=== PATIENT | female | born 1970 | race Two or more races ===

== ENCOUNTER 2019-01-15 12:58 | Inpatient (IN) | payer MEDICAID ==
[~2019-01-15] VITALS: Ht 170.2 cm; Wt 74.8 kg
[2019-01-15 13:11] VITALS: BP 127/72
[2019-01-15] MEDS ORDERED: Isovue-300 100ml vial INJ PRN (13:15)
[2019-01-15] MEDS ORDERED: NKM (13:16)
--- NOTE | 2019-01-15 13:18 | Emergency Room Report ---
History of Present Illness General Chief Complaint: Nausea, Vomiting, and Diarrhea Source: Patient, Medical Record (Con Villanueva DO) Present Illness HPI Patient presents with complaints of general weakness increased nausea vomiting diarrhea ongoing for the past several days patient reports that today she started feeling very weak She reports specifically weakness to her left arm as well reports that it feels heavy when trying to lift it This started in the morning about 7:00 Denies any lower extremity focal weakness patient reports history of anemia denies any previous transfusions Patient also felt palpitations with this lightheaded at times with standing Patient reports that her anemia is reported to be related to her heavy menstrual cycles Denies any fall or trauma patient also complains of bilateral mid abdominal cramping (Con Villanueva DO) Allergies: Coded Allergies: No Known Allergies (Unverified , 01/15/19) Patient History Past Medical History: see triage record Pertinent Family History: none Last Menstrual Period: 01/07/19 Reviewed Nursing Documentation: PMH: Agreed; PSxH: Agreed (Con Villanueva DO) Nursing Documentation-PMH Past Medical History: No History, Except For (Con Villanueva DO) Review of Systems All Other Systems: negative except mentioned in HPI (Con Villanueva DO) Physical Exam Vital Signs Date Time Temp Pulse Resp B/P (MAP) Pulse Ox O2 Delivery O2 Flow Rate FiO2 01/15/19 13:08 97.7 95 18 136/87 (103) 96 Room Air Sp02 EP Interpretation: reviewed, normal General Appearance: mild distress - Appears uncomfortable Head: normocephalic, atraumatic Eyes: bilateral eye PERRL, bilateral eye EOMI ENT: hearing grossly normal, TMs + canals normal, uvula midline, dry mucus membranes, other - pallor Neck: full range of motion, supple, no meningismus, no bony tend Respiratory: lungs clear, normal breath sounds, no rhonchi, no respiratory distress, no retraction, no accessory muscle use Cardiovascular #1: normal peripheral pulses, regular rate, rhythm, no edema, no gallop, no JVD, no murmur Gastrointestinal: normal bowel sounds, non tender, soft, no mass, no organomegaly, non-distended, no guarding, no hernia, no pulsatile mass, no rebound Genitourinary: no CVA tenderness Musculoskeletal: other - Equal nurseryperson bilaterally no obvious drift patient reports, subjectively feeling weaker in the left hand Neurologic: oriented x3, responsive, motor strength/tone normal, sensory intact Psychiatric: mood/affect normal Skin: warm/dry, palpation normal, pallor Lymphatic: normal inspection, no adenopathy (Con Villanueva DO) Medical Decision Making Diagnostic Impression: Primary Impression: Sepsis Qualified Codes: A41.9 - Sepsis, unspecified organism Additional Impressions: Abdominal pain Qualified Codes: R10.10 - Upper abdominal pain, unspecified Leukocytosis Qualified Codes: D72.828 - Other elevated white blood cell count Elevated lactic acid level UTI (urinary tract infection) Qualified Codes: N39.0 - Urinary tract infection, site not specified ER Course Multiple differentials and consideration upon arrival patient appears pale There is concern regarding significant anemia Given the patient's weakness CT imaging is also obtained however patient does not meet any Thrombolytic criteria falling well outside the window of 4 to 6-1/2 hours from onset Patient also does not demonstrate any focal weakness on the exam Given the vomiting and diarrhea other infectious pathology also entertained (Con Villanueva DO) ER Course Please see above note. Antibiotics begun. Elevated lactic acid. Sepsis fluid bolus ordered with continued hydration. Small dose morphine given for abdominal pain. Still soft. Head CT neg. No more L arm weakness. States index finger numb from pulse ox. CT returns essentially negative (bladder thick). Renal cyst. Pain is not in lower abdomen. Contact Dr. Pham/Ananda for admission with Dr. Ordoñez consult. Sepsis re-evaluation, - 15:50 - HR better, lactic acid less, good cap fill, antibiotics in. Source of sepsis unclear. Laboratory Tests Test 01/15/19 13:20 01/15/19 14:05 01/15/19 15:15 White Blood Count 24.2 K/UL (4.8-10.8) *H Red Blood Count 5.34 M/UL (4.20-5.40) Hemoglobin 9.3 G/DL (12.0-16.0) L Hematocrit 32.3 % (37.0-47.0) L Mean Corpuscular Volume 61 FL (80-99) L Mean Corpuscular Hemoglobin 17.5 PG (27.0-31.0) L Mean Corpuscular Hemoglobin Concent 28.9 G/DL (32.0-36.0) L Red Cell Distribution Width 15.7 % (11.6-14.8) H Platelet Count 599 K/UL (150-450) H Mean Platelet Volume 5.8 FL (6.5-10.1) L Neutrophils (%) (Auto) % (45.0-75.0) Lymphocytes (%) (Auto) % (20.0-45.0) Monocytes (%) (Auto) % (1.0-10.0) Eosinophils (%) (Auto) % (0.0-3.0) Basophils (%) (Auto) % (0.0-2.0) Differential Total Cells Counted 100 Neutrophils % (Manual) 85 % (45-75) H Lymphocytes % (Manual) 9 % (20-45) L Monocytes % (Manual) 5 % (1-10) Eosinophils % (Manual) 0 % (0-3) Basophils % (Manual) 0 % (0-2) Band Neutrophils 1 % (0-8) Platelet Estimate Increased H Platelet Morphology Normal Hypochromasia 2+ Anisocytosis 1+ Microcytosis 4+ Sodium Level 132 MMOL/L (136-145) L Potassium Level 3.5 MMOL/L (3.5-5.1) Chloride Level 101 MMOL/L (98-107) Carbon Dioxide Level 21 MMOL/L (21-32) Anion Gap 10 mmol/L (5-15) Blood Urea Nitrogen 8 mg/dL (7-18) Creatinine 0.8 MG/DL (0.55-1.30) Estimate Glomerular Filtration Rate > 60 mL/min (>60) Glucose Level 199 MG/DL (74-106) H Lactic Acid Level 3.00 mmol/L (0.4-2.0) H 2.30 mmol/L (0.66-2.22) H Calcium Level 9.6 MG/DL (8.5-10.1) Total Bilirubin 0.4 MG/DL (0.2-1.0) Aspartate Amino Transferase (AST) 37 U/L (15-37) Alanine Aminotransferase (ALT) 33 U/L (12-78) Alkaline Phosphatase 118 U/L (46-116) H Total Creatine Kinase 229 U/L (26-308) Creatine Kinase MB 0.8 NG/ML (0.0-3.6) Creatine Kinase MB Relative Index 0.3 Troponin I 0.000 ng/mL (0.000-0.056) Pro-B-Type Natriuretic Peptide 21 pg/mL (0-125) Total Protein 8.4 G/DL (6.4-8.2) H Albumin 3.9 G/DL (3.4-5.0) Globulin 4.5 g/dL Albumin/Globulin Ratio 0.9 (1.0-2.7) L Lipase 129 U/L (73-393) Urine Color Yellow Urine Appearance Turbid Urine pH 5 (4.5-8.0) Urine Specific [place] 1.030 (1.005-1.035) Urine Protein 3+ (NEGATIVE) H Urine Glucose (UA) Negative (NEGATIVE) Urine Ketones 2+ (NEGATIVE) H Urine Blood 4+ (NEGATIVE) H Urine Nitrite Negative (NEGATIVE) Urine Bilirubin 1+ (NEGATIVE) H Urine Ictotest Negative (NEGATIVE) Urine Urobilinogen Normal MG/DL (0.0-1.0) Urine Leukocyte Esterase 1+ (NEGATIVE) H Urine RBC 10-15 /HPF (0 - 2) H Urine WBC 5-10 /HPF (0 - 2) H Urine Squamous Epithelial Cells Few /LPF (NONE/OCC) Urine Calcium Oxalate Crystals Few /LPF (NONE) Urine Amorphous Sediment Many /LPF (NONE) H Urine Bacteria Few /HPF (NONE) Urine HCG, Qualitative Negative (NEGATIVE) (Marshall Gutierres MD) Rhythm Strip Diag. Results EP Interpretation: yes Rate: 88 Rhythm: NSR, no PVC's, no ectopy (Con Villanueva DO) EP Interpretation: yes Rhythm: no PVC's, no ectopy, other - ST (Marshall Gutierres MD) Chest X-Ray Diagnostic Results Chest X-Ray Diagnostic Results : Chest X-Ray Ordered: Yes # of Views/Limited/Complete: 1 View Indication: Other EP Interpretation: Yes Interpretation: no consolidation, no effusion, no pneumothorax Impression: No acute disease Electronically Signed by: Electronically signed by Marshall Gutierres MD (Marshall Gutierres MD) CT/MRI/US Diagnostic Results CT/MRI/US Diagnostic Results #1: Imaging Test Ordered: abd/pelvis Impression IMPRESSION: Fatty liver Mild thickening of the wall the urinary bladder. Correlate for cystitis. Suggestion of uterine fibroids. Small cyst in the left kidney. 1.8 cm cyst left ovary. Mild atherosclerotic vascular disease. CT/MRI/US Diagnostic Results #2: Imaging Test Ordered: head Impression neg (Marshall Gutierres MD) Last Vital Signs Date Time Temp Pulse Resp B/P (MAP) Pulse Ox O2 Delivery O2 Flow Rate FiO2 01/15/19 13:11 97.7 94 20 127/72 99 Room Air (Con Villanueva DO) Last Vital Signs Date Time Temp Pulse Resp B/P (MAP) Pulse Ox O2 Delivery O2 Flow Rate FiO2 01/15/19 16:50 98.4 104 20 96/66 (76) 98 01/15/19 16:50 Room Air Status: improved (Marshall Gutierres MD) Disposition: ADMITTED INPATIENT Condition: Serious Con Villanueva DO Jan 15, 2019 13:18 Marshall Gutierres MD Jan 15, 2019 14:23
[2019-01-15 13:42] LABS: HEMATOCRIT 32.3 % (37.0-47.0); HEMOGLOBIN 9.3 G/DL (12.0-16.0); MEAN CORPUSCULAR VOLUME 61 FL (80-99); PLATELET COUNT 599 K/UL (150-450); RED BLOOD COUNT 5.34 M/UL (4.20-5.40); RED CELL DISTRIBUTION WIDTH 15.7 % (11.6-14.8)
--- NOTE | 2019-01-15 13:45 | NUR ---
ED Nurse Note: Pt came in from home due to upper quadrant abdominal pain with nausea/vomiting/diarrhea x " a couple of hours" prior to arrival. Pain 10/10 audra. No active vomiting in ER but reported emesis was "yelowish fluid". Last bowel movement was today. Bowel sounds present on all quadrants. AOx4, VSS audra. Will cont to monitor.
[2019-01-15 13:46] LABS: WHITE BLOOD COUNT 24.2 K/UL (4.8-10.8)
[2019-01-15 13:55] LABS: ANION GAP 10 mmol/L (5-15); BLOOD UREA NITROGEN 8 mg/dL (7-18); CALCIUM 9.6 MG/DL (8.5-10.1); CARBON DIOXIDE 21 MMOL/L (21-32); CHLORIDE 101 MMOL/L (98-107); CREATININE 0.8 MG/DL (0.55-1.30); POTASSIUM 3.5 MMOL/L (3.5-5.1); SODIUM 132 MMOL/L (136-145)
[2019-01-15 14:09] LABS: ALANINE AMINOTRANSFERASE 33 U/L (12-78); ALBUMIN 3.9 G/DL (3.4-5.0); ALBUMIN/GLOBULIN RATIO 0.9 (1.0-2.7); ALKALINE PHOSPHATASE 118 U/L (46-116); ASPARTATE AMINO TRANSFERASE 37 U/L (15-37); BILIRUBIN,TOTAL 0.4 MG/DL (0.2-1.0); CKMB 0.8 NG/ML (0.0-3.6); CREATINE KINASE 229 U/L (26-308)
--- NOTE | 2019-01-15 14:09 | Diagnostic Imaging Report ---
Indication: Dizziness and vomiting Technique: Contiguous 5 mm thick transaxial imaging of the head obtained in a Siemens Sensation [address] scanner. Soft tissue and bone windows generated. Automatic Exposure Control was utilized. Total Dose length Product (DLP): 1291.[address] Dose Index Volume (CTDIvol): 70.38 mGy Comparison: none Findings: The size and configuration of the cortical sulci, basal cisterns, and ventricles are within normal limits for age. There is no mass effect, midline shift, or edema identified. There is no evidence of acute hemorrhage or abnormal intra-axial or extra-axial fluid collections. The bones and soft tissues are unremarkable. Impression: No mass effect, edema or acute bleed. The CT scanner at [facility] is accredited by the [employer] and the scans are performed using dose optimization techniques as appropriate to a performed exam including Automatic Exposure control.
--- NOTE | 2019-01-15 14:15 | NUR ---
ED Nurse Note: Pt ambulated to the bathroom with steady gait.
--- NOTE | 2019-01-15 14:20 | Diagnostic Imaging Report ---
Indication: Chest pain Comparison: None A single view chest radiograph was obtained. Findings: Cardiomediastinal appearance is within normal limits for age. The lungs are clear. Pulmonary vascularity is appropriate. The diaphragmatic contour is smooth and costophrenic angles are sharp. No pleural effusions are identified. The bones are unremarkable. Impression: No acute findings
[2019-01-15] MEDS ORDERED: Sodium Chloride 2,200 ML IVLG ONE (14:30)
[2019-01-15 14:31] LABS: APPEARANCE,URINE TURBID; BILIRUBIN, URINE 1+ (NEGATIVE); GLUCOSE, URINE (UA) NEGATIVE (NEGATIVE); KETONES,URINE 2+ (NEGATIVE); LEUKOCYTE ESTERASE ,URINE 1+ (NEGATIVE); NITRITE,URINE NEGATIVE (NEGATIVE); PH,URINE 5 (4.5-8.0); PROTEIN,URINE 3+ (NEGATIVE); UROBILINOGEN,URINE NORMAL MG/DL (0.0-1.0)
[2019-01-15 14:36] LABS: COLOR,URINE YELLOW
[2019-01-15] MEDS ORDERED: Morphine Sulfate 2mg/ml Inj(IV/IM USE ONLY) IVP ONE (14:45)
--- NOTE | 2019-01-15 14:47 | NUR ---
ED Nurse Note: Pt down to CT for abdominal imaging. Consent signed by patient and RN.
--- NOTE | 2019-01-15 15:10 | NUR ---
ED Nurse Note: Pt back from CT, no sign of acute distress.
--- NOTE | 2019-01-15 15:36 | Diagnostic Imaging Report ---
Indication: Abdominal pain Technique: Continuous helical transaxial imaging of the abdomen and pelvis was obtained from the lung bases to the pubic symphysis during intravenous contrast administration. Coronal 2-D reformats were also obtained. Study obtained in a Siemens sensation [address] Automatic Exposure Control was utilized. Total Dose length Product (DLP): 862.[address] Dose Index Volume (CTDIvol): 16.14 mGy Comparison: None Findings: Lung bases are clear. The liver is low in attenuation consistent with fatty infiltration. Gallbladder is unremarkable. There is breathing motion limiting evaluation. The spleen, pancreas, adrenal glands and kidneys appear normal. There is a cyst in the left kidney measuring 1.7 cm. Bowel gas pattern is nonobstructive. There is liquefied stool in the colon which is a sign of diarrhea. Correlate clinically. Mild thickening of the urinary bladder wall noted. Appendix is not seen but there are no secondary signs of acute appendicitis. The uterus is heterogeneous. There is a 3.7 cm mass in the lower uterine segment likely a fibroid. There is a 1.8 cm cyst within the left ovary. There is no free fluid identified. IMPRESSION: Fatty liver Mild thickening of the wall the urinary bladder. Correlate for cystitis. Suggestion of uterine fibroids. Small cyst in the left kidney. 1.8 cm cyst left ovary. Mild atherosclerotic vascular disease. The CT scanner at [facility] is accredited by the [employer] and the scans are performed using dose optimization techniques as appropriate to a performed exam including Automatic Exposure control.
[2019-01-15 15:44] VITALS: BP 111/63
[2019-01-15 16:15] VITALS: BP 108/58
--- NOTE | 2019-01-15 16:35 | NUR ---
ED Nurse Note: Report given to DARNELL Villalobos at ext [phone]. Pt to be transfered to [facility] per protocol.
[2019-01-15 16:50] VITALS: BP 96/66
--- NOTE | 2019-01-15 16:50 | NUR ---
NURSE NOTES: ADMITTED A 48 YR OLD FEMALE WITH DX OF WEAKNESS AND DEHYDRATION. AWAKE /ALERT. ADM CARE DONE SEE ADM ASSESSMENT. DR Miguel DICKSON NOTIFIED OF PT ADMISSION WITH ORDER.
--- NOTE | 2019-01-15 19:00 | NUR ---
NURSE NOTES: quiet in bed. no c/o discomfort. in no distress.
--- NOTE | 2019-01-15 19:23 | NUR ---
HAND-OFF: Report given to RADHA PATRICK.
--- NOTE | 2019-01-15 19:44 | NUR ---
NURSE NOTES: Received report from DARNELL Dillon. Patient is awake in bed, speaking on her cell phone. Alert x 4. No respiratory distress. Bed in lowest position with 2 side rails up. Call light is within reach. Will continue to monitor the patient.
[2019-01-15 20:00] VITALS: BP 105/67
--- NOTE | 2019-01-15 20:17 | NUR ---
CASE MANAGEMENT: REVIEW 48Y/F PRESENTED TO ED FROM HOME CC: N/V/D . GENERALIZED WEAKNESS . ABD PAIN . DIZZINESS SI: DEHYDRATION . SEPSIS . UTI T 98.4 HR 104 RR 20 BP 96/66 SAT 96% ROOM AIR WBC 24.2 H/H 9.3/32.3 LACTIC ACID 3.0 IS: NS IVF BOLUS X1 FLAGYL IV X1 LEVOFLOXACIN IV X1 ZOFRAN IV X1 MORPHINE 2MG IV X1 PATIENT ADMITTED TO MED/SURG UNIT 01/15/2019 DCP: PATIENT IS FROM HOME
--- NOTE | 2019-01-15 20:22 | NUR ---
NURSE NOTES: Called Dr Malave at 2019 regarding patient's DVT prophylaxis and code status. Also informed regarding EKG results and requested any additional orders if necessary. Waiting for callback.
[2019-01-15] MEDS: D5NS 1,000 ML IV SCH (23:06)
[2019-01-15] MEDS: Piperacillin/Tazobactam 3.375 GM in NS 110 ML IVPB SCH (23:07)
[2019-01-16] VITALS: BP 102/73
[2019-01-16 04:00] VITALS: BP 106/60
[2019-01-16] MEDS: Piperacillin/Tazobactam 3.375 GM in NS 110 ML IVPB SCH (05:41)
--- NOTE | 2019-01-16 06:15 | History and Physical Report ---
DATE OF ADMISSION: 01/15/2019 REASON FOR ADMISSION: Leukocytosis, lactic acidosis, and probable sepsis history. HISTORY OF PRESENT ILLNESS: This is a 48-year-old female with no significant prior medical history developed relatively acute onset nausea, vomiting, and diarrhea this morning after breakfast. She had mild symptoms the past few days, but not of this intensity and of L3 combined. She noted dizziness, lightheadedness, and weakness of her left arm following these events and felt her blood pressure was quite low. She could not stand up without feeling dizzy and lightheaded. PAST MEDICAL HISTORY: Includes anemia due to menorrhagia. MEDICATIONS: Reviewed and reconciled. ALLERGIES: None. FAMILY HISTORY: Noncontributory. SOCIAL HISTORY: Negative for smoking, alcohol, or substance abuse. REVIEW OF SYSTEMS: A 10-point review of systems performed. All systems negative other than noted above. PHYSICAL EXAMINATION: GENERAL: She is presently in no acute distress. VITAL SIGNS: Blood pressure 136/87, pulse 95, respirations 18, and afebrile. HEENT: Conjunctivae are pink. Sclerae are anicteric. Oropharynx clear. Mucous membranes dry. NECK: Supple. Jugular venous pressure normal. LUNGS: Clear. No breast masses. CARDIAC: Regular rhythm and rate. Normal S1, S2 with no murmur. ABDOMEN: Soft. She has no distention. There is mild diffuse tenderness. No guarding or rebound. EXTREMITIES: No clubbing, cyanosis, or edema. LABORATORY DATA: White count 24, hemoglobin 9.3, and platelets 599,000. Potassium 3.5, sodium 132, and bicarb 21. Lactic acid 3. BUN 8 and creatinine 0.8. Troponin negative. Liver function normal. Lipase normal. IMPRESSION: 1. Nausea, vomiting, and diarrhea. 2. Abdominal sepsis with leukocytosis. 3. Hyponatremia. 4. Hypovolemia. 5. Orthostatic hypotension. 6. Lactic acidosis. PLAN: 1. Hydration with saline. 2. Pancultured. 3. Empiric antibiotics. 4. Replace electrolytes. 5. Thyroid panel. 6. Stool studies. 7. Review CAT scan of the abdomen and pelvis done in the emergency room. Marshall Malave M.D. DR: PAM JOB#: [id number] CC:
--- NOTE | 2019-01-16 07:16 | NUR ---
HAND-OFF: Report given to DARNELL Rodriguez.
[2019-01-16 07:59] VITALS: BP 106/60
--- NOTE | 2019-01-16 08:00 | NUR ---
NURSE NOTES: Pt awake alert, no sob. no c/o pain. no distress. call light within reach. bed in lowest position, locked. will monitor.
--- NOTE | 2019-01-16 08:00 | NUR ---
NURSE NOTES: pt awake alert, no distress. no sob. c/o diarrhea no c/o pain. made aware dr Pham, received order for lomotil tid prn
[2019-01-16] MEDS: Lomotil 2.5mg tab ORAL PRN (08:26)
[2019-01-16] MEDS: D5NS 1,000 ML IV SCH (08:30)
[2019-01-16 08:37] LABS: HEMATOCRIT 24.6 % (37.0-47.0); HEMOGLOBIN 7.3 G/DL (12.0-16.0); MEAN CORPUSCULAR VOLUME 60 FL (80-99); PLATELET COUNT 427 K/UL (150-450); RED BLOOD COUNT 4.07 M/UL (4.20-5.40); RED CELL DISTRIBUTION WIDTH 15.5 % (11.6-14.8); WHITE BLOOD COUNT 14.3 K/UL (4.8-10.8)
[2019-01-16] MEDS ORDERED: Heparin 5000 units/ml inj SUBQ SCH ×2 (09:00)
[2019-01-16 09:25] LABS: ALANINE AMINOTRANSFERASE 24 U/L (12-78); ALBUMIN 3.2 G/DL (3.4-5.0); ALKALINE PHOSPHATASE 87 U/L (46-116); ANION GAP 10 mmol/L (5-15); ASPARTATE AMINO TRANSFERASE 11 U/L (15-37); BILIRUBIN,TOTAL 0.4 MG/DL (0.2-1.0); BLOOD UREA NITROGEN 7 mg/dL (7-18); CALCIUM 8.3 MG/DL (8.5-10.1); CARBON DIOXIDE 23 MMOL/L (21-32); CHLORIDE 107 MMOL/L (98-107); CREATININE 0.7 MG/DL (0.55-1.30); POTASSIUM 3.4 MMOL/L (3.5-5.1); SODIUM 140 MMOL/L (136-145)
[2019-01-16 12:00] VITALS: BP 106/64
[2019-01-16 12:03] LABS: % IRON SATURATION 3 % (15-50); IRON 13 ug/dL (50-175); TOTAL IRON BINDING CAPACITY 417 ug/dL (250-450)
[2019-01-16] MEDS: metroNIDAZOLE 500mg tab ORAL SCH ×2 (13:24→21:56)
[2019-01-16] MEDS: Levofloxacin 500mg tab ORAL SCH (13:24)
--- NOTE | 2019-01-16 14:00 | NUR ---
NURSE NOTES: relayed to dr Pham re hgb trend today no new order. pending collection for stool ob
--- NOTE | 2019-01-16 14:55 | Consultation ---
History of Present Illness General Date patient seen: Jan 16, 2019 Reason for Hospitalization: Nausea, Vomiting, and Diarrhea Present Illness HPI 48-year-old female with no significant prior medical history developed relatively acute onset nausea, vomiting, and diarrhea after breakfast on day of admission. Minimal abdominal discomfort. denies f/c. no blood noted in stool. no recent travel. no prior events. in ED had leukocytosis. UTI. surgery called to evaluate. CT a/p okay. Allergies: Coded Allergies: No Known Allergies (Unverified , 01/15/19) Medication History Scheduled No Known Medications* (NKM - No Known Medications*), 0 ., (Reported) Patient History History Provided By: Patient, Medical Record, PMD Healthcare decision maker SELF Resuscitation status Full Code Advanced Directive on File No Past Medical/Surgical History Past Medical/Surgical History: (1) Dehydration (2) Weakness (3) Left-sided weakness (4) Sepsis (5) Leukocytosis (6) Elevated lactic acid level (7) UTI (urinary tract infection) (8) Abdominal pain Review of Systems Review of Symptoms General ROS: no weight loss or fever Psychological ROS: no depression or mood changes, no memory loss Ophthalmic ROS: no visual changes or eye irritation ENT ROS: no nasal congestion, hearing loss, dizziness Allergy and Immunology ROS: no allergic symptoms or urticaria Hematological and Lymphatic ROS: no swollen glands, unusual bleeding or bruising Endocrine ROS: no polyuria, polydipsia, weight changes, temperature intolerance Respiratory ROS: no cough, shortness of breath, or wheezing Cardiovascular ROS: no chest pain or dyspnea on exertion Gastrointestinal ROS: denies abdominal pain, no bright red blood in stool. Musculoskeletal ROS: no myalgias or arthralgias Neurological ROS: no TIA or stroke symptoms Dermatological ROS: no new or changing skin lesions, rashes or pruritis Physical Exam Physical Exam General appearance: alert, cooperative, no distress, appears stated age Head: Normocephalic, without obvious abnormality, atraumatic Eyes: conjunctivae/corneas clear. PERRL, EOM's intact. Fundi benign Throat: Lips, mucosa, and tongue normal. Teeth and gums normal Neck: supple, symmetrical, trachea midline, no adenopathy, thyroid: not enlarged, symmetric, no tenderness/mass/nodules, no carotid bruit and no JVD Lungs: clear to auscultation bilaterally Heart: regular rate and rhythm, S1, S2 normal, no murmur, click, rub or gallop Abdomen: soft, non-tender. Bowel sounds normal. No masses, no organomegaly Extremities: extremities normal, atraumatic, no cyanosis or edema Pulses: 2+ and symmetric Skin: Skin color, texture, turgor normal. No rashes or lesions Neurologic: Grossly normal Last 24 Hour Vital Signs Date Time Temp Pulse Resp B/P (MAP) Pulse Ox O2 Delivery O2 Flow Rate FiO2 01/16/19 12:00 98.3 89 18 106/64 (78) 97 01/16/19 11:17 98.3 01/16/19 08:28 Room Air 01/16/19 07:59 98.3 90 18 106/60 (75) 97 01/16/19 04:00 98.3 85 18 106/60 (75) 97 01/16/19 00:00 99.5 99 18 102/73 (83) 97 01/15/19 21:00 Room Air 01/15/19 20:00 97.6 104 18 105/67 (80) 97 01/15/19 16:50 98.4 104 20 96/66 (76) 98 01/15/19 16:50 Room Air 01/15/19 16:35 97.7 95 19 108/58 99 Room Air 01/15/19 16:15 97.7 95 19 108/58 99 Room Air 01/15/19 15:47 97.7 01/15/19 15:44 97.7 102 19 111/63 96 Room Air Intake and Output 01/15/19 01/16/19 19:00 07:00 Intake Total 2950 ml 110.0 ml Balance 2950 ml 110.0 ml Intake Oral 250 ml IV Total 2700 ml 110.0 ml # Voids 1 3 # Bowel Movements 1 1 Laboratory Tests Test 01/15/19 15:15 01/16/19 07:07 01/16/19 10:20 01/16/19 12:00 Lactic Acid Level 2.30 mmol/L (0.66-2.22) H 2.60 mmol/L (0.4-2.0) H 2.90 mmol/L (0.66-2.22) H 2.60 mmol/L (0.4-2.0) H White Blood Count 14.3 K/UL (4.8-10.8) H Red Blood Count 4.07 M/UL (4.20-5.40) L Hemoglobin 7.3 G/DL (12.0-16.0) L Hematocrit 24.6 % (37.0-47.0) L Mean Corpuscular Volume 60 FL (80-99) L Mean Corpuscular Hemoglobin 17.9 PG (27.0-31.0) L Mean Corpuscular Hemoglobin Concent 29.7 G/DL (32.0-36.0) L Red Cell Distribution Width 15.5 % (11.6-14.8) H Platelet Count 427 K/UL (150-450) Mean Platelet Volume 5.8 FL (6.5-10.1) L Neutrophils (%) (Auto) % (45.0-75.0) Lymphocytes (%) (Auto) % (20.0-45.0) Monocytes (%) (Auto) % (1.0-10.0) Eosinophils (%) (Auto) % (0.0-3.0) Basophils (%) (Auto) % (0.0-2.0) Differential Total Cells Counted 100 Neutrophils % (Manual) 82 % (45-75) H Lymphocytes % (Manual) 14 % (20-45) L Monocytes % (Manual) 2 % (1-10) Eosinophils % (Manual) 2 % (0-3) Basophils % (Manual) 0 % (0-2) Band Neutrophils 0 % (0-8) Platelet Estimate Adequate Platelet Morphology Normal Hypochromasia 2+ Anisocytosis 1+ Sodium Level 140 MMOL/L (136-145) Potassium Level 3.4 MMOL/L (3.5-5.1) L Chloride Level 107 MMOL/L (98-107) Carbon Dioxide Level 23 MMOL/L (21-32) Anion Gap 10 mmol/L (5-15) Blood Urea Nitrogen 7 mg/dL (7-18) Creatinine 0.7 MG/DL (0.55-1.30) Estimat Glomerular Filtration Rate > 60 mL/min (>60) Glucose Level 122 MG/DL (74-106) H Hemoglobin A1c 6.5 % (4.3-6.0) H Calcium Level 8.3 MG/DL (8.5-10.1) L Magnesium Level 1.8 MG/DL (1.8-2.4) Iron Level 13 ug/dL (50-175) L Total Iron Binding Capacity 417 ug/dL (250-450) Percent Iron Saturation 3 % (15-50) L Unsaturated Iron Binding 404 ug/dL (112-346) H Total Bilirubin 0.4 MG/DL (0.2-1.0) Aspartate Amino Transf (AST/SGOT) 11 U/L (15-37) L Alanine Aminotransferase (ALT/SGPT) 24 U/L (12-78) Alkaline Phosphatase 87 U/L (46-116) Total Protein 6.4 G/DL (6.4-8.2) Albumin 3.2 G/DL (3.4-5.0) L Globulin 3.2 g/dL Albumin/Globulin Ratio 1.0 (1.0-2.7) Thyroid Stimulating Hormone (TSH) 1.530 uiU/mL (0.358-3.740) Height (Feet): 5 Height (Inches): 7.00 Weight (Pounds): 165 Medications Current Medications Medications (Trade) Dose Ordered Sig/Niyah Route PRN Reason Start Time Stop Time Status Last Admin Dose Admin Acetaminophen (Tylenol) 650 mg Q4H PRN ORAL Mild Pain/Temp > 100.5 01/16/19 00:00 02/15/19 00:00 01/16/19 10:47 Diphenoxylate HCl/ Atropine (Lomotil) 2.5 mg TIDPRN PRN ORAL Diarrhea 01/16/19 08:00 02/15/19 07:59 01/16/19 08:26 Famotidine (Pepcid) 20 mg DAILY ORAL 01/16/19 09:00 02/15/19 08:59 01/16/19 08:26 Iopamidol (Isovue-300 100ml) 100 ml NOW PRN INJ Radiology Procedure 01/15/19 13:15 Iron Sucrose 100 mg/Sodium Chloride 60 ml @ 240 mls/hr BEDTIME IV 01/16/19 21:00 01/20/19 21:14 Levofloxacin (Levaquin) 500 mg DAILY ORAL 01/16/19 13:15 01/23/19 13:14 01/16/19 13:24 Metronidazole (Flagyl) 500 mg Q8HR ORAL 01/16/19 14:00 01/23/19 13:59 01/16/19 13:24 Ondansetron HCl (Zofran) 4 mg Q6H PRN IVP Nausea & Vomiting 01/15/19 22:30 02/14/19 22:29 Sodium Chloride 1,000 ml @ 150 mls/hr Q6H40M IV 01/16/19 12:22 02/15/19 12:21 01/16/19 12:22 Assessment/Plan Problem List: (1) Sepsis Assessment & Plan: afebrile, HD stable. leukocytosis improving UTI on IV abx trend labs cont current care ICD Codes: A41.9 - Sepsis, unspecified organism SNOMED: 90423003 Qualifiers: Qualified Codes: A41.9 - Sepsis, unspecified organism (2) Leukocytosis ICD Codes: D72.829 - Elevated white blood cell count, unspecified SNOMED: 084279756, 861904295 Qualifiers: Qualified Codes: D72.828 - Other elevated white blood cell count (3) Elevated lactic acid level ICD Codes: R79.89 - Other specified abnormal findings of blood chemistry SNOMED: 3655829 (4) UTI (urinary tract infection) ICD Codes: N39.0 - Urinary tract infection, site not specified SNOMED: 67684589, 816581044 Qualifiers: Qualified Codes: N39.0 - Urinary tract infection, site not specified (5) Abdominal pain Assessment & Plan: Abd pain, nausea, emesis. leukocytosis likely UTI possible enteritis. exam stable will follow with recs no acute surgical intervention planned. ICD Codes: R10.9 - Unspecified abdominal pain SNOMED: 82226819, 697430856 Qualifiers: Qualified Codes: R10.10 - Upper abdominal pain, unspecified (6) Dehydration ICD Codes: E86.0 - Dehydration SNOMED: 02731526 (7) Weakness ICD Codes: R53.1 - Weakness SNOMED: 82461606 (8) Left-sided weakness ICD Codes: R53.1 - Weakness SNOMED: 998475351 Silver Ordoñez Jan 16, 2019 14:55
--- NOTE | 2019-01-16 15:13 | NUR ---
*-* INSURANCE *-* ALL CLINICALS AND REVIEWS HAVE BEEN FAXED TO: [employer] ASSIGNED AT THIS TIME PLEASE FAX THE REVIEW/CLINICAL FX: [phone] Addendum: 01/16/19 at 1605 by ANDREA CHOPRA CM REF# [id number]
--- NOTE | 2019-01-16 15:58 | NUR ---
HAND-OFF: Report given to CHRISTIANO PATRICK.
[2019-01-16 16:00] VITALS: BP 114/77
--- NOTE | 2019-01-16 17:00 | Consultation ---
DATE OF CONSULTATION: 01/16/2019 CHIEF COMPLAINT: I was asked to see this patient by Dr. Ganesh Pham for evaluation of anemia. HISTORY OF PRESENT ILLNESS: The patient is a pleasant 48-year-old woman who [facility] with diagnosis of sepsis, presumed urinary tract infection. The patient was noted to have significant microcytic anemia, which prompted this consultation. The patient denies any abdominal pain, nausea, vomiting, diarrhea, constipation, hematochezia or pyrosis. She says she has had a longstanding history of anemia and for this matter, she had endoscopy and colonoscopy about 2 years ago. Endoscopy showed gastritis and the colonoscopy was unremarkable. She was advised that her anemia is likely due to menstrual losses and she has been followed conservatively. She now is here for infection and is getting antibiotics. CT scan of the abdomen and pelvis showed some bladder wall thickening, but otherwise no major pathology was identified, fatty liver was also identified on the scan. PAST MEDICAL HISTORY: Remarkable for history of anemia. FAMILY HISTORY: Negative for significant disorder. SOCIAL HISTORY: The patient does not smoke or drink alcohol. ALLERGIES: None. REVIEW OF SYSTEMS: Otherwise negative. MEDICATIONS: See chart list for details. PHYSICAL EXAMINATION: GENERAL: This is a pleasant woman, seen in her room. HEENT: Normocephalic and atraumatic. Sclerae anicteric. Oropharynx clear. NECK: Supple. CHEST: Clear to auscultation. CARDIOVASCULAR: Revealed regular rate. ABDOMEN: Soft. EXTREMITIES: Revealed no edema. LABORATORY DATA: Noted. ASSESSMENT: This patient has anemia, which is of longstanding duration, has already been worked up with endoscopy and colonoscopy and the patient recall details clearly. Her symptoms are presumed to be gynecological losses. She should have annual stool occult blood test including one now to document no bleeding from the gastrointestinal tract. She can be replaced with intravenous iron and then also with oral iron as an outpatient on a long-term basis. If desired, she can be placed on hormonal therapy to reduce her menstrual losses. Alternatively may be done with mensuration naturally as well. Should the patient have any GI symptoms or heme-positive stools, then repeat endoscopic evaluation would be indicated. RECOMMENDATIONS: 1. Check stool occult blood. 2. Intravenous iron. 3. The patient was advised to follow up with her physician as an outpatient after discharge regardless matter. 4. Further gastrointestinal endoscopic workup if symptoms or if heme-positive stools identified. Thank you for asking me to participate in care of this patient. Ricardo Maynard M.D. DR: Sam JOB#: [id number] CC:
--- NOTE | 2019-01-16 19:16 | NUR ---
HAND-OFF: Report given to Verito PATRICK.
--- NOTE | 2019-01-16 19:31 | NUR ---
NURSE NOTES: Received report from Laura PATRICK. Patient is awake, alert x [address]'s order the with a steady gate. IVs are intact. No c/o pain. No respiratory distress. Will continue to monitor.
[2019-01-16 20:00] VITALS: BP 111/73
[2019-01-16] MEDS ORDERED: Iron Sucrose 100 MG in NS 55 ML IV SCH (21:00)
--- NOTE | 2019-01-16 22:45 | Consultation ---
DATE OF CONSULTATION: 01/16/2019 INFECTIOUS DISEASES CONSULTATION This consult is for coverage of Dr. Durand. CONSULTING PHYSICIAN: Freddy Wilson M.D. PRIMARY ATTENDING PHYSICIAN: Ganesh Pham M.D. REASON FOR CONSULTATION: Gastroenteritis. HISTORY OF PRESENT ILLNESS: This is a 48-year-old female admitted yesterday complaining of nausea, vomiting, diarrhea. The patient had left hand weakness, had orthostatic hypotension. The patient does not feel good for 3 to 4 days before admission, but majority of the symptoms started at the day of admission. Denies any fever. At the time of admission, had leukocytosis and lactic acidosis. WBC was 24.2. PAST MEDICAL HISTORY: Significant for anemia secondary to menorrhagia. The patient is supposed to receive p.o. iron, but states she did not get it. She has history of appendectomy and genital herpes. ALLERGIES: No known drug allergies. MEDICATIONS: Iron sucrose, started on Flagyl and Levaquin, famotidine, Lomotil, got Zosyn that was discontinued by me. He is on Zofran. SOCIAL HISTORY: Denies alcohol, drug abuse, or smoking. She is single. Lives with daughter. No history of new trouble. No history of sick contacts. The patient is from [facility]. REVIEW OF SYSTEMS: No fever. No chills. No coughing. No shortness of breath. Feels better today. No nausea or vomiting. Takes liquid diet, but still has diarrhea two times a day. No problem passing urine. PHYSICAL EXAMINATION: VITAL SIGNS: Temperature 98.3, pulse 90, blood pressure 106/60. GENERAL APPEARANCE: No acute distress. Seems to have normal weight. HEAD AND NECK: No oral oral lesion. HEART: Normal rate. LUNGS: Clear. ABDOMEN: Soft and nontender. EXTREMITIES: No edema. NEUROLOGIC: Awake, alert, oriented x3 LABORATORY AND DIAGNOSTIC DATA: WBC today is 14.3 coming down; hemoglobin is also decreasing, come from 9.3 yesterday to 7.3; hematocrit 24.6; and platelets 427,000. Lactic acid was 3 at the time of admission, coming down to 2.9. Sodium 140, potassium 3.4, chloride 107, bicarbonate 23, BUN 7, creatinine 0.7, albumin is 3.2. The patient had a CT scan of the head that was negative. CT scan of the abdomen and pelvis showed fatty liver, possibility of mild cystitis, uterine fibroid, 1.8 cm left ovary cyst. UA showed wbc's of 5 to 10, rbc's of 10 to 15. IMPRESSION: 1. Gastroenteritis, nausea, vomiting, diarrhea, improving. 2. The patient may have urinary tract infection with cystitis. 3. Severe anemia secondary to menorrhagia 4, fatty liver. RECOMMENDATION: We will continue Flagyl and Levaquin. We will follow up the culture and clinical course. At the end of my exam, I thank Dr. Pham for involving me in the care of this patient. Freddy Wilson M.D. DR: Annie JOB#: [id number] CC: KALLI
--- NOTE | 2019-01-16 23:15 | Progress Note ---
DATE: 01/16/2019 INTERNAL MEDICINE PROGRESS NOTE SUBJECTIVE: The patient does not have nausea or vomiting today. She has some abdominal discomfort still and diarrhea. She remains afebrile. CAT scan of the abdomen and pelvis reviewed again and notable for only some bladder wall thickening with no other abnormalities. OBJECTIVE: VITAL SIGNS: Blood pressure 114/77, pulse 88, respirations 21, afebrile. LUNGS: Clear. CARDIAC: Regular. ABDOMEN: Soft. No focal tenderness. EXTREMITIES: No edema. No CVA tenderness. LABORATORY DATA: Urinalysis with 10 to 15 red cells, 5 to 10 white cells. Lactic acid levels remained elevated at 2.9 and 2.6 respectively. Iron saturation is 3. White count 14.3, hemoglobin 7.3. Hemoglobin A1c is 6.5. IMPRESSION: 1. Colitis. 2. Diarrhea. 3. Leukocytosis, improved. 4. Iron deficiency with anemia. 5. History of menorrhagia. 6. Lactic acidosis. 7. Type 2 diabetes mellitus undiagnosed. PLAN: 1. ADA diet. 2. Continue hydration. 3. Antidiarrheals. 4. Empiric antimicrobials. 5. IV iron stool. 6. Occult blood test. 7. Await stool studies and culture results. Marshall Malave M.D. DR: AMPARO JOB#: [id number] CC:
[2019-01-17] VITALS: BP 130/79
[2019-01-17 04:00] VITALS: BP 117/74
[2019-01-17] MEDS: Lomotil 2.5mg tab ORAL PRN (05:34)
[2019-01-17] MEDS: metroNIDAZOLE 500mg tab ORAL SCH ×2 (05:34→14:00)
[2019-01-17 06:44] LABS: HEMATOCRIT 25.4 % (37.0-47.0); HEMOGLOBIN 7.5 G/DL (12.0-16.0); MEAN CORPUSCULAR VOLUME 60 FL (80-99); PLATELET COUNT 424 K/UL (150-450); RED CELL DISTRIBUTION WIDTH 15.6 % (11.6-14.8); WHITE BLOOD COUNT 9.9 K/UL (4.8-10.8)
--- NOTE | 2019-01-17 07:00 | NUR ---
HAND-OFF: Report given to DARNELL Sanchez.
[2019-01-17 07:04] LABS: ALANINE AMINOTRANSFERASE 26 U/L (12-78); ALBUMIN 3.1 G/DL (3.4-5.0); ALBUMIN/GLOBULIN RATIO 0.9 (1.0-2.7); ALKALINE PHOSPHATASE 85 U/L (46-116); ANION GAP 11 mmol/L (5-15); ASPARTATE AMINO TRANSFERASE 12 U/L (15-37); BILIRUBIN,TOTAL 0.3 MG/DL (0.2-1.0); BLOOD UREA NITROGEN 6 mg/dL (7-18); CALCIUM 8.4 MG/DL (8.5-10.1); CARBON DIOXIDE 24 MMOL/L (21-32); CHLORIDE 109 MMOL/L (98-107); CREATININE 0.7 MG/DL (0.55-1.30); POTASSIUM 3.4 MMOL/L (3.5-5.1); SODIUM 144 MMOL/L (136-145)
--- NOTE | 2019-01-17 07:21 | NUR ---
NURSE NOTES: Patient received sleeping in bed, breathing unlabored on room air. Denies pain or SOB at this time. IV site on right arm patent and intact, running fluids at 150cc/hr. RN to collect all stools today per orders. Bed locked in lowest position, call light placed within reach. Will continue to monitor.
[2019-01-17 08:00] VITALS: BP 120/70
[2019-01-17] MEDS: Levofloxacin 500mg tab ORAL SCH (08:04)
[2019-01-17] MEDS ORDERED: D5NS 1000ml IV ONE (09:34)
[2019-01-17] MEDS ORDERED: Tubing IV Secondary IV ONE (09:34)
--- NOTE | 2019-01-17 11:07 | Infectious Diseases Prog Note ---
Assessment/Plan Assessment/Plan antibiotics : levoquin, flagyl A 1. UTI 2. gastroenteritis 3. anemia P 1. continue levoquin, flagyl 2 more days 2. will follow up cultures Subjective Constitutional: Denies: fever, chills Respiratory: Denies: shortness of breath, dry cough Gastrointestinal/Abdominal: Reports: nausea, diarrhea; Denies: vomiting Musculoskeletal: Denies: pain Allergies: Coded Allergies: No Known Allergies (Unverified , 01/15/19) Objective Vital Signs Last 24 Hour Vital Signs Date Time Temp Pulse Resp B/P (MAP) Pulse Ox O2 Delivery O2 Flow Rate FiO2 01/17/19 10:16 Room Air 01/17/19 09:00 Room Air 01/17/19 08:00 98.1 86 18 120/70 (87) 96 01/17/19 04:00 98.0 89 20 117/74 (88) 99 01/17/19 00:00 98.0 90 20 130/79 (96) 97 01/16/19 21:00 Room Air 01/16/19 20:00 98.9 85 20 111/73 (86) 95 01/16/19 16:00 98.7 88 21 114/77 (89) 98 01/16/19 12:00 98.3 89 18 106/64 (78) 97 01/16/19 11:17 98.3 Height (Feet): 5 Height (Inches): 7.00 Weight (Pounds): 165 Respiratory/Chest: lungs clear Cardiovascular: normal rate, regular rhythm Abdomen: soft, non tender Extremities: no edema Microbiology Date/Time Source Procedure Growth Status 01/15/19 13:35 Blood Blood Culture - Preliminary NO GROWTH AFTER 24 HOURS Resulted 01/15/19 13:20 Blood Blood Culture - Preliminary NO GROWTH AFTER 24 HOURS Resulted Laboratory Tests Test 01/16/19 12:00 01/16/19 14:45 01/16/19 15:20 01/17/19 05:50 Lactic Acid Level 2.60 mmol/L (0.4-2.0) H 1.60 mmol/L (0.66-2.22) 1.30 mmol/L (0.4-2.0) Stool Occult Blood Positive (NEGATIVE) White Blood Count 9.9 K/UL (4.8-10.8) Red Blood Count 4.20 M/UL (4.20-5.40) Hemoglobin 7.5 G/DL (12.0-16.0) L Hematocrit 25.4 % (37.0-47.0) L Mean Corpuscular Volume 60 FL (80-99) L Mean Corpuscular Hemoglobin 17.9 PG (27.0-31.0) L Mean Corpuscular Hemoglobin Concent 29.7 G/DL (32.0-36.0) L Red Cell Distribution Width 15.6 % (11.6-14.8) H Platelet Count 424 K/UL (150-450) Mean Platelet Volume 5.9 FL (6.5-10.1) L Neutrophils (%) (Auto) % (45.0-75.0) Lymphocytes (%) (Auto) % (20.0-45.0) Monocytes (%) (Auto) % (1.0-10.0) Eosinophils (%) (Auto) % (0.0-3.0) Basophils (%) (Auto) % (0.0-2.0) Differential Total Cells Counted 100 Neutrophils % (Manual) 75 % (45-75) Lymphocytes % (Manual) 21 % (20-45) Monocytes % (Manual) 3 % (1-10) Eosinophils % (Manual) 1 % (0-3) Basophils % (Manual) 0 % (0-2) Band Neutrophils 0 % (0-8) Platelet Estimate Adequate Platelet Morphology Normal Hypochromasia 1+ Anisocytosis 1+ Microcytosis 2+ Sodium Level 144 MMOL/L (136-145) Potassium Level 3.4 MMOL/L (3.5-5.1) L Chloride Level 109 MMOL/L (98-107) H Carbon Dioxide Level 24 MMOL/L (21-32) Anion Gap 11 mmol/L (5-15) Blood Urea Nitrogen 6 mg/dL (7-18) L Creatinine 0.7 MG/DL (0.55-1.30) Estimat Glomerular Filtration Rate > 60 mL/min (>60) Glucose Level 129 MG/DL (74-106) H Calcium Level 8.4 MG/DL (8.5-10.1) L Total Bilirubin 0.3 MG/DL (0.2-1.0) Aspartate Amino Transf (AST/SGOT) 12 U/L (15-37) L Alanine Aminotransferase (ALT/SGPT) 26 U/L (12-78) Alkaline Phosphatase 85 U/L (46-116) Total Protein 6.7 G/DL (6.4-8.2) Albumin 3.1 G/DL (3.4-5.0) L Globulin 3.6 g/dL Albumin/Globulin Ratio 0.9 (1.0-2.7) L Current Medications Medications (Trade) Dose Ordered Sig/Niyah Route PRN Reason Start Time Stop Time Status Last Admin Dose Admin Acetaminophen (Tylenol) 650 mg Q4H PRN ORAL Mild Pain/Temp > 100.5 01/16/19 00:00 02/15/19 00:00 01/16/19 10:47 Diphenoxylate HCl/ Atropine (Lomotil) 2.5 mg TIDPRN PRN ORAL Diarrhea 01/16/19 08:00 02/15/19 07:59 01/17/19 05:34 Famotidine (Pepcid) 20 mg DAILY ORAL 01/16/19 09:00 02/15/19 08:59 01/17/19 08:04 Iopamidol (Isovue-300 100ml) 100 ml NOW PRN INJ Radiology Procedure 01/15/19 13:15 Iron Sucrose 100 mg/Sodium Chloride 60 ml @ 240 mls/hr BEDTIME IV 01/16/19 21:00 01/20/19 21:14 01/16/19 21:56 Levofloxacin (Levaquin) 500 mg DAILY ORAL 01/16/19 13:15 01/23/19 13:14 01/17/19 08:04 Metronidazole (Flagyl) 500 mg Q8HR ORAL 01/16/19 14:00 01/23/19 13:59 01/17/19 05:34 Ondansetron HCl (Zofran) 4 mg Q6H PRN IVP Nausea & Vomiting 01/15/19 22:30 02/14/19 22:29 01/17/19 05:34 Sodium Chloride 1,000 ml @ 150 mls/hr Q6H40M IV 01/16/19 12:22 02/15/19 12:21 01/17/19 06:56 Karolyn Durand MD Jan 17, 2019 11:07
[2019-01-17 12:00] VITALS: BP 124/73
--- NOTE | 2019-01-17 12:06 | Surgery Progress Note ---
Surgery Progress Note Subjective Symptoms: improved Additional Comments no acute events. comfortable exam stable. leukocytosis improved. Objective Last 24 Hour Vital Signs Date Time Temp Pulse Resp B/P (MAP) Pulse Ox O2 Delivery O2 Flow Rate FiO2 01/17/19 10:16 Room Air 01/17/19 09:00 Room Air 01/17/19 08:00 98.1 86 18 120/70 (87) 96 01/17/19 04:00 98.0 89 20 117/74 (88) 99 01/17/19 00:00 98.0 90 20 130/79 (96) 97 01/16/19 21:00 Room Air 01/16/19 20:00 98.9 85 20 111/73 (86) 95 01/16/19 16:00 98.7 88 21 114/77 (89) 98 I&O Intake and Output 01/16/19 01/17/19 18:59 06:59 Intake Total 1230 ml 1710 ml Balance 1230 ml 1710 ml Intake Oral 480 ml IV Total 750 ml 1710 ml # Voids 1 # Bowel Movements 3 1 Drains: none Cardiovascular: RSR Respiratory: clear Abdomen: soft, non-tender, present bowel sounds Extremities: no tenderness, no cyanosis Laboratory Tests Test 01/16/19 14:45 01/16/19 15:20 01/17/19 05:50 Stool Occult Blood Positive (NEGATIVE) Lactic Acid Level 1.60 mmol/L (0.66-2.22) 1.30 mmol/L (0.4-2.0) White Blood Count 9.9 K/UL (4.8-10.8) Red Blood Count 4.20 M/UL (4.20-5.40) Hemoglobin 7.5 G/DL (12.0-16.0) L Hematocrit 25.4 % (37.0-47.0) L Mean Corpuscular Volume 60 FL (80-99) L Mean Corpuscular Hemoglobin 17.9 PG (27.0-31.0) L Mean Corpuscular Hemoglobin Concent 29.7 G/DL (32.0-36.0) L Red Cell Distribution Width 15.6 % (11.6-14.8) H Platelet Count 424 K/UL (150-450) Mean Platelet Volume 5.9 FL (6.5-10.1) L Neutrophils (%) (Auto) % (45.0-75.0) Lymphocytes (%) (Auto) % (20.0-45.0) Monocytes (%) (Auto) % (1.0-10.0) Eosinophils (%) (Auto) % (0.0-3.0) Basophils (%) (Auto) % (0.0-2.0) Differential Total Cells Counted 100 Neutrophils % (Manual) 75 % (45-75) Lymphocytes % (Manual) 21 % (20-45) Monocytes % (Manual) 3 % (1-10) Eosinophils % (Manual) 1 % (0-3) Basophils % (Manual) 0 % (0-2) Band Neutrophils 0 % (0-8) Platelet Estimate Adequate Platelet Morphology Normal Hypochromasia 1+ Anisocytosis 1+ Microcytosis 2+ Sodium Level 144 MMOL/L (136-145) Potassium Level 3.4 MMOL/L (3.5-5.1) L Chloride Level 109 MMOL/L (98-107) H Carbon Dioxide Level 24 MMOL/L (21-32) Anion Gap 11 mmol/L (5-15) Blood Urea Nitrogen 6 mg/dL (7-18) L Creatinine 0.7 MG/DL (0.55-1.30) Estimat Glomerular Filtration Rate > 60 mL/min (>60) Glucose Level 129 MG/DL (74-106) H Calcium Level 8.4 MG/DL (8.5-10.1) L Total Bilirubin 0.3 MG/DL (0.2-1.0) Aspartate Amino Transf (AST/SGOT) 12 U/L (15-37) L Alanine Aminotransferase (ALT/SGPT) 26 U/L (12-78) Alkaline Phosphatase 85 U/L (46-116) Total Protein 6.7 G/DL (6.4-8.2) Albumin 3.1 G/DL (3.4-5.0) L Globulin 3.6 g/dL Albumin/Globulin Ratio 0.9 (1.0-2.7) L Plan Problems: (1) Sepsis Assessment & Plan: afebrile, HD stable. leukocytosis improving UTI on IV abx trend labs cont current care (2) Leukocytosis (3) Elevated lactic acid level (4) UTI (urinary tract infection) (5) Abdominal pain Assessment & Plan: Abd pain, nausea, emesis. leukocytosis resolved likely UTI possible enteritis. exam stable will follow with recs no acute surgical intervention planned. (6) Dehydration (7) Weakness (8) Left-sided weakness Silver Ordoñez Jan 17, 2019 12:06
--- NOTE | 2019-01-17 13:24 | NUR ---
*-* INSURANCE *-* ALL CLINICALS AND REVIEWS HAVE BEEN FAXED TO: [employer] ASSIGNED AT THIS TIME PLEASE FAX THE REVIEW/CLINICAL FX: [phone] REF# [id number]
--- NOTE | 2019-01-17 13:24 | NUR ---
CASE MANAGEMENT:REVIEW 01/17/19 SI:SEPSIS. DEHYDRATION 98.5 88 17 124/73 98% ON RA H/H-7.5/25.4 K-3.4 IS: IV VENOFER QHS FLAGYL Q8HRS LEVAQUIN PO QD IVF@150/HR PEPCID PO QD : MED/SURG STATUS 4 EAST DCP: FROM HOME PLAN: MONITOR PENDING BLOOD CULTURE
[2019-01-17] MEDS ORDERED: Iron Sucrose 100 MG in NS 55 ML IV ONE (15:00)
[2019-01-17] MEDS ORDERED: FERROUS SULFAT325 MG ORAL (15:37)
[2019-01-17] MEDS ORDERED: FLAGYL500 MG ORAL (15:41)
[2019-01-17] MEDS ORDERED: LEVAQUIN500 MG ORAL (15:41)
[2019-01-17] MEDS ORDERED: LOMOTIL TABLET1 EACH ORAL (15:42)
--- NOTE | 2019-01-17 15:59 | Cardiology Report ---
APPROVED REPORT EKG Measurement Heart [id number] MA [id number] Sinus tachycardia Otherwise normal ECG
[2019-01-17 16:00] VITALS: BP 114/73
--- NOTE | 2019-01-17 16:06 | Cardiology Report ---
APPROVED REPORT EKG Measurement Heart [id number] Normal sinus rhythm Prolonged QT Abnormal ECG
--- NOTE | 2019-01-17 16:22 | General Progress Note ---
Assessment/Plan Assessment/Plan: Assessment - N/V - resolved - diarrhea - presumed acute gastroenteritis, possibly viral Recommendations - po as tolerated - hydration - Abx per ID - follow labs Subjective Allergies: Coded Allergies: No Known Allergies (Unverified , 01/15/19) Subjective Better abd pain nearly gone BM x 3 yesterday, loose no vomiting tolerating PO Objective Last 24 Hour Vital Signs Date Time Temp Pulse Resp B/P (MAP) Pulse Ox O2 Delivery O2 Flow Rate FiO2 01/17/19 12:00 98.5 88 17 124/73 (90) 98 01/17/19 10:16 Room Air 01/17/19 09:00 Room Air 01/17/19 08:00 98.1 86 18 120/70 (87) 96 01/17/19 04:00 98.0 89 20 117/74 (88) 99 01/17/19 00:00 98.0 90 20 130/79 (96) 97 01/16/19 21:00 Room Air 01/16/19 20:00 98.9 85 20 111/73 (86) 95 Intake and Output 01/16/19 01/17/19 18:59 06:59 Intake Total 1230 ml 1710 ml Balance 1230 ml 1710 ml Intake Oral 480 ml IV Total 750 ml 1710 ml # Voids 1 # Bowel Movements 3 1 Laboratory Tests 01/17/19 05:50: White Blood Count 9.9, Red Blood Count 4.20, Hemoglobin 7.5L, Hematocrit 25.4L, Mean Corpuscular Volume 60L, Mean Corpuscular Hemoglobin 17.9L, Mean Corpuscular Hemoglobin Concent 29.7L, Red Cell Distribution Width 15.6H, Platelet Count 424, Mean Platelet Volume 5.9L, Neutrophils (%) (Auto) , Lymphocytes (%) (Auto) , Monocytes (%) (Auto) , Eosinophils (%) (Auto) , Basophils (%) (Auto) , Differential Total Cells Counted 100, Neutrophils % ( Manual) 75, Lymphocytes % (Manual) 21, Monocytes % (Manual) 3, Eosinophils % ( Manual) 1, Basophils % (Manual) 0, Band Neutrophils 0, Platelet Estimate Adequate, Platelet Morphology Normal, Hypochromasia 1+, Anisocytosis 1+, Microcytosis 2+, Sodium Level 144, Potassium Level 3.4L, Chloride Level 109H, Carbon Dioxide Level 24, Anion Gap 11, Blood Urea Nitrogen 6L, Creatinine 0.7, Estimat Glomerular Filtration Rate > 60, Glucose Level 129H, Lactic Acid Level 1.30, Calcium Level 8.4L, Total Bilirubin 0.3, Aspartate Amino Transf (AST/SGOT ) 12L, Alanine Aminotransferase (ALT/SGPT) 26, Alkaline Phosphatase 85, Total Protein 6.7, Albumin 3.1L, Globulin 3.6, Albumin/Globulin Ratio 0.9L Height (Feet): 5 Height (Inches): 7.00 Weight (Pounds): 165 Objective WDWN NCAT supple CTA RRR abd soft ND NT no edema Ricardo Maynard MD Jan 17, 2019 16:22
--- NOTE | 2019-01-17 16:47 | NUR ---
NURSE NOTES: Patient discharged to home, transported arranged with taxi. Belongings reviewed and confirmed with the patient by bedside. IV safely removed. Prescriptions filled at [facility]. Patient discharged with medications in hand. Discharge packet explained. Patient verbalized understanding.
--- NOTE | 2019-01-18 00:15 | Progress Note ---
DATE: 01/17/2019 INTERNAL MEDICINE PROGRESS NOTE SUBJECTIVE: The patient has improved with regard to diarrhea although it has not resolved completely. She denies abdominal pain, nausea, or vomiting. Her appetite is good. She was to intravenous iron and felt quite weak from may require and refuses further therapy with IV iron. She was made aware of an occult blood stool, which may be due to her acute enteritis. She had a colonoscopy 3 years ago. OBJECTIVE: VITAL SIGNS: Vitals are stable. Afebrile. LUNGS: Clear. ABDOMEN: Soft and nontender. CARDIAC: Regular. EXTREMITIES: No edema. IMPRESSION: 1. Resolving enteritis or colitis. 2. Resolved leukocytosis and sepsis. 3. Menorrhagia. 4. Iron-deficiency anemia. 5. Hemoccult positive stools. Possible etiologies as described above. 6. Type 2 diabetes mellitus with A1c of 6.5. PLAN: 1. Continue antidiarrheals. 2. Complete course of oral antimicrobials with Levaquin and Flagyl. 3. Iron replacement orally. 4. Advised to recheck stool for occult blood in the next several weeks. If persisting, should pursue a colonoscopy and follow up GI consultation. The patient understands and concurs. She was also made aware of her diabetes mellitus diagnosis and advised her to a 1800 calorie ADA diet and exercise program. Marshall Malave M.D. DR: PAM JOB#: [id number] CC:
--- NOTE | 2019-01-20 08:10 | Discharge Summary ---
Discharge Summary Discharge Summary _ DATE OF ADMISSION: 01/15/2019 DATE OF DISCHARGE: 01/17/2019 DISCHARGED BY: REASON FOR ADMISSION: 48 years old female with no significant past medical history, developed relatively acute onset of nausea, vomiting, and diarrhea after breakfast. She also noted dizziness, lightheadedness and weakness . Patient was unable to stand up without feeling dizzy and lightheaded. Patient presented to emergency department for further evaluation. Vital signs were stable. Laboratory work-up revealed significant leukocytosis with WBC 24.2, hemoglobin 9.3, hematocrit 32.3. MCV 61. Chemistry showed sodium 132, BUN 8 creatinine 0.8. Glucose 199. Lactic acid 3, repeated 2.3. Stable LFT and lipase. Troponin negative. Pro BNP 21. EKG reveals sinus rhythm no acute ischemic changes. Urinalysis revealed pyuria, +3 protein +2 ketones + leukocyte esterase and few bacteria. Urine test was negative. CT of the head demonstrated no acute intracranial pathology. Chest x-ray demonstrated no acute cardiopulmonary findings. CT of the abdomen and pelvis demonstrated fatty liver. Mild thickening of the wall of the urinary bladder, possible cystitis. 1.8 cm left ovary cyst. CONSULTANTS: ID specialist Dr. Durand GI specialist Dr. Maynard surgery [facility] COURSE: Patient admitted to medical surgical floor and started on IV fluids with saline. Patient pancultured and started on empiric antibiotics. Renal parameters and electrolytes were closely monitored. Electrolytes corrected as needed. Nephrotoxins were avoided. Stool culture was negative. Blood culture were negative. Infectious disease specialist closely followed. Antibiotic provided as per infectious disease recommendation. Symptomatic treatment provided. GI specialist followed. Antidiarrheal and antiemetic were on board as needed. Patient gradually started on diet. Nausea, vomiting and diarrhea presumed to be due to acute gastroenteritis, possibly viral and gradually resolved. Surgeon seen and evaluated patient. Abdominal exam was benign. Leukocytosis resolved. Per surgeon, patient probably had a gastroenteritis. No acute surgical intervention was necessarily. Anemia work-up revealed evidence of anemia of iron deficiency. Patient received intravenous iron, which changed to oral iron supplement upon discharge Hemoglobin and hematocrit were closely monitored with goal to keep hemoglobin above 7. Stool for occult blood was positive. Prior to discharge hemoglobin 7.5 , hematocrit 25.4. TSH within normal limits. Hemoglobin A1c 6.5. No prior history of diabetes. Lactic acidosis resolved (repeated lactic acid 1.6). Patient completed antibiotics while in the hospital. Patient was advised to follow-up with her physician as outpatient to recheck stool for occult blood. If persistent Hemoccult positive , recommended to pursue colonoscopy and follow- up with GI consultation. Patient was also made aware of newly diagnosed diabetes mellitus. Patient was advised on 1800-calorie diabetic diet and exercise program. Patient verbalized discharge instructions and concurred with all of them. Patient was stable for discharge. FINAL DIAGNOSES: Nausea, vomiting and diarrhea, presumed to be due to acute gastroenteritis , possibly viral-resolved Urinary tract infection Leukocytosis -resolved Lactic acidosis Sepsis Type 2 diabetes mellitus with hemoglobin A1c 6.5 -newly diagnosed Iron deficiency anemia ( possibly due to menorrhagia and/or positive Hemoccult stool) DISCHARGE MEDICATIONS: See Medication Reconciliation list. DISCHARGE INSTRUCTIONS: Patient was discharged home. Follow up with primary care provider in one week. I have been assigned to dictate discharge summary for this account. I was not involved in the patient's management. Kenisha Pride NP Jan 20, 2019 08:10
== END 2019-01-17 16:45 | disposition home or self-care (01) | DRG 720 ==
LOC: EMR 13:30 → 4E 14:35 → EDBEDREQ 16:24 → 4E 16:49
DX: A41.9 Sepsis, unspecified organism (principal); E87.1 Hypo-osmolality and hyponatremia; K76.0 Fatty (change of) liver, not elsewhere classified; A08.4 Viral intestinal infection, unspecified; E11.9 Type 2 diabetes mellitus without complications; D50.0 Iron deficiency anemia secondary to blood loss (chronic); E86.1 Hypovolemia; I95.1 Orthostatic hypotension; N92.1 Excessive and frequent menstruation with irregular cycle; K29.70 Gastritis, unspecified, without bleeding; N39.0 Urinary tract infection, site not specified; R10.9 Unspecified abdominal pain
CPT/HCPCS: 36415; 70450; 71045; 74177; 80053; 81003; 81025; 82270; 82550; 82553; 83036; 83540; 83550; 83605; 83690; 83735; 83880; 84443; 84484; 85007; 85025; 86850; 86900; 86901; 87040; 87045; 87324; 93005; 96361; 96365; 96368; 96375; 99285; J2405; J8499